=== PATIENT | male | born 1965 | race Caucasian/White ===

== ENCOUNTER 2016-11-06 06:26 | Inpatient (IN) | payer OTHER ==
[2016-11-06] VITALS (20 sets, daily range): BP systolic 91–124; BP diastolic 58–81; PULSE 50–70; RESP 13–20; Ht 185.4 cm; Wt 120.4 kg
[~2016-11-06] VITALS: Ht 185.4 cm; Wt 120.4 kg
[2016-11-06] MEDS ORDERED: SURGIFOAM POWDER 1 GM KIT ONE (06:49)
[2016-11-06] MEDS ORDERED: ROCURONIUM 50 MG INJ ONE (06:50)
[2016-11-06] MEDS ORDERED: BUPIVACAINE 0.25%/EPI (SDV) 30 ML INJ ONE (06:50)
[2016-11-06] MEDS ORDERED: BUPIVACAINE 0.25% (MPF) 30 ML INJ ONE (06:50)
[2016-11-06] MEDS ORDERED: CA CHLORIDE 10% 10 ML SYRINGE ONE (06:50)
[2016-11-06] MEDS ORDERED: LIDOCAINE 2% (SDV) 5 ML INJ ONE (06:50)
[2016-11-06] MEDS ORDERED: THROMBIN 5000 UNIT VIAL ONE (06:50)
[2016-11-06] MEDS ORDERED: PROPOFOL 20 ML ONE (06:50)
[2016-11-06] MEDS ORDERED: FENTAnyl 50 MCG/ML VIAL ONE ×2 (06:52→07:58)
--- NOTE | 2016-11-06 06:58 | HPN ---
Date/Time of Note Date/Time of Note DATE: 11/06/16 TIME: 06:58 MARGE ALVARENGA PA-C Nov 06, 2016 06:58
[2016-11-06] MEDS ORDERED: CYCLOBENZAPRINE 10 MG TAB PO PRN (07:00)
[2016-11-06] MEDS ORDERED: AL HYDROX/MG HYDROX/SIMETH 30 ML CUP PO PRN (07:00)
[2016-11-06] MEDS ORDERED: HYDROmorphONE 1 MG/ML SYG IV PRN (07:00)
[2016-11-06] MEDS ORDERED: ONDANSETRON 4 MG INJ ONE (07:00)
[2016-11-06] MEDS ORDERED: DIPHENHYDRAMINE 50 MG INJ IV PRN ×2 (07:00→09:00)
[2016-11-06] MEDS ORDERED: ONDANSETRON 4 MG INJ IV PRN ×2 (07:00→09:00)
[2016-11-06] MEDS ORDERED: NALOXONE (0.4 MG/ML) INJ IV PRN (07:00)
[2016-11-06] MEDS ORDERED: BISACODYL 10 MG SUPP PR PRN (07:00)
[2016-11-06] MEDS ORDERED: CEPASTAT LOZENGE MT PRN (07:00)
[2016-11-06] MEDS ORDERED: ZOLPIDEM 5 MG TAB PO PRN (07:00)
[2016-11-06] MEDS ORDERED: ACETAMINOPHEN 325 MG TAB PO PRN (07:00)
[2016-11-06] MEDS ORDERED: HYDROmorphONE 0.2 MG/ML PCA IV SCH (07:00)
[2016-11-06] MEDS ORDERED: morphine 10 MG INJ ONE (07:08)
[2016-11-06] MEDS ORDERED: LABETALOL HCL 20MG INJ ONE (07:41)
[2016-11-06] MEDS ORDERED: THROMBIN 5000 UNIT VIAL TOP ONE (07:48)
[2016-11-06] MEDS ORDERED: BUPIVACAINE 0.25%/EPI (SDV) 30 ML INJ INJ ONE (07:48)
[2016-11-06] MEDS ORDERED: POLYMYXIN/BACITRACIN 1L IRRIG IRR ONE (07:48)
[2016-11-06] MEDS ORDERED: LACTATED RINGER'S 1L BAG IV* SCH (08:00)
[2016-11-06] MEDS ORDERED: CEFAZOLIN 2 GM/50 ML (PMX) 50 ML IVPB ONE (08:00)
[2016-11-06] MEDS ORDERED: DEXAMETHASONE 4 MG/ML 1 ML INJ ONE (08:30)
[2016-11-06] MEDS ORDERED: POLYMYXIN/BACITRACIN 1L IRRIG ONE (08:49)
[2016-11-06] MEDS ORDERED: EPHEDrine SULFATE 50 MG/5 ML SYG IV PRN (09:00)
[2016-11-06] MEDS ORDERED: LABETALOL HCL 20MG INJ IV PRN (09:00)
[2016-11-06] MEDS ORDERED: OXYCODONE/ACETAMINOPHEN (5/325) TAB PO PRN ×2 (09:00)
[2016-11-06] MEDS ORDERED: hydrALAzine 20 MG INJ IV PRN (09:00)
[2016-11-06] MEDS ORDERED: METOCLOPRAMIDE 10 MG INJ IV PRN (09:00)
[2016-11-06] MEDS: DOCUSATE SODIUM 100 MG CAP PO SCH ×2 (09:00→20:40)
[2016-11-06] MEDS ORDERED: HYDROmorphONE (0.2 MG/ML) 10ML SYG IV PRN ×3 (09:00)
[2016-11-06] MEDS ORDERED: MEPERIDINE 25 MG INJ IV PRN (09:00)
[2016-11-06] MEDS ORDERED: FENTAnyl 50 MCG/ML VIAL IV PRN ×3 (09:00)
--- NOTE | 2016-11-06 09:17 | OPR ---
Date/Time of Note Date/Time of Note DATE: 11/06/16 TIME: 09:12 Operative Report Preoperative Diagnosis left L4-5 HNP Postoperative Diagnosis left L4-5 HNP Operation/Procedure Performed left L4-5 discectomy, IOM (75 min) Surgeon: JESÚS BREWSTER MD hospital nursing assistant: MARGE ALVARENGA PA-C Anesthesia: general Estimated Blood Loss: 50 - 100 ml's Specimens disk Complications: None JESÚS BREWSTER MD Nov 06, 2016 09:17
[2016-11-06] MEDS: D5W-0.45 NACL + KCL 20 MEQ 1,000 ML IV SCH ×2 (09:26→16:13)
--- NOTE | 2016-11-06 11:40 | OPR ---
DATE OF OPERATION: 11/06/2016 PREOPERATIVE DIAGNOSES: 1. Left L4-5 disc herniation. 2. Left hip pain. 3. Left lumbosacral radiculopathy. 4. BMI 35. (morbid obesity). POSTOPERATIVE DIAGNOSES: 1. Left L4-5 disc herniation. 2. Left hip pain. 3. Left lumbosacral radiculopathy. 4. BMI 35. (morbid obesity). OPERATION PERFORMED: 1. Left L4-5 hemilaminotomy, partial medial facetectomy, and foraminotomy. 2. Left L4-5 lumbar microdiscectomy. 3. Use of operative microscope. 4. Use of C-arm fluoroscopy with interpretation without radiologist present. 5. Intraoperative neural monitoring (1 hour 15 minutes). SURGEON: Fernando Braxton MD LEGUILLON DEBEADER: Roxana Marquez PA-C NEED FOR SEISMOGRAPH SHOOTER: assistant coach was required to retract the neurovascular elements. OPERATIVE FINDINGS AT SURGERY: Neural monitoring throughout the case revealed left L4 amplitude down 30 percent, left L5 amplitude down 40 percent. At the end of the case, nerve signal returned to normal. ESTIMATED BLOOD LOSS: 50 cc. DRAINS: None. SPECIMENS: Disc. COMPLICATIONS: None. ANESTHESIOLOGIST: Dr. Bolanos. ANESTHESIA: General. INDICATION FOR PROCEDURE: This is a 51-year-old gentleman with left lumbosacral radiculopathy in the setting of a disc herniation at L4-5. He has failed nonoperative measures. Therefore, it was recommended that he undergo the above procedure. Preoperatively, we discussed risks, benefits, alternatives. He understood and wished to proceed. PROCEDURE IN DETAIL: The patient was identified in the holding area, given Ancef antibiotics, taken to the operating room, where he was successfully placed under general anesthesia. Neural monitor leads were placed. Sequential compressive devices were applied. Neural monitoring was utilized during the procedure for 1 hour and 15 minutes to include SSEP, MEP, and EMG. This was performed by [employer]. Start time was 7:45 a.m. Closure time was 9 a.m. The patient was placed in the operating room table in prone position on Matthew frame. All bony prominences were well padded. The back was then prepped draped usual sterile fashion. Spine needles were placed and a lateral localizing film was obtained to confirm the correct levels. Once this was confirmed, I injected the skin and subcu tissue with Marcaine and epinephrine. An incision was then made over the L4-5 level. Incision was taken down to the dorsal fascia, which was incised with Bovie cautery. I then subperiosteally dissected left L4 lamina. A Kerrison was placed on what was felt to be the L4 lamina and a repeat lateral film obtained to confirm the correct levels. Once this was confirmed, microscope was brought in. The patient was morbidly obese and extended instruments had to be utilized which added complexity to the procedure. I then performed a left-sided hemilaminotomy. His bone was quite soft. I was concerned for osteoporosis. This will be need to be checked during his postoperative time. Once the laminotomy was performed, ligamentum flavum was sharply dissected. Partial medial facetectomy was performed. I identified the nerve root, which I was able to have my assistant teaching professor retracted medially. I found extrusion. Annulotomy was made and discectomy was performed. Once the discectomy was completed, all nerve signals returned to normal. I irrigated the disc space in the wound. Hemostasis was achieved with bipolar cautery and Surgifoam. Valsalva maneuver was performed. There was no leak of CSF. The wound was dry and I therefore elected not to place a drain. I passed an epidural catheter through which I injected 100 mcg of fentanyl. Platelet poor plasma was then injected over the over the dura. The retractor was then removed and the deep fascia was closed with number 1 Vicryl stitch. Microscope was taken off the field. 2-0 Vicryl subcutaneous closure was performed followed by 4-0 Monocryl closure. Dermabond was then applied. The patient was then awakened from anesthesia, and taken recovery in stable condition. Lap, sponge, and instrument counts correct x2. There were no apparent complications during the procedure. The patient will be admitted to [facility] for routine postoperative care to include pain control, neurovascular checks, antibiotics and physical therapy. Dictated By: Fernando Braxton MD /alison/yael /Document#: [id number] [place]
--- NOTE | 2016-11-06 13:03 | RADRPT ---
PROCEDURE: XR lumbar spine CLINICAL INDICATION: L4-L5 MICRODISCECTOMY TECHNIQUE: Single cross-table lateral view lumbar spine obtained COMPARISON: None available FINDINGS: [place] present in the posterior soft tissues at the upper L4, L5 levels. Anterior osteophytes are visualized L3-4 through L5-S1 with mild moderate disk space narrowing at L4-5. IMPRESSION: Posterior needle localization at L4, L5. Lower lumbar spondylosis/degenerative enthesopathy. RPTAT: VV .Eliu Dove MD, Date Time Electronically viewed and signed by .Eliu Dove MD, on 11/06/2016 13:03 .O/
--- NOTE | 2016-11-06 13:04 | RADRPT ---
PROCEDURE: XR lumbar spine CLINICAL INDICATION: L4-L5 MICRODISCECTOMY TECHNIQUE: Single cross-table lateral view lumbar spine obtained COMPARISON: 11/06/2016 FINDINGS: There are now posterior instrumentation at the L4-5 level. Anterior osteophytes are again visualized at L3-4 through L5-S1 with mild moderate disk space narrowing at L4-5. IMPRESSION: Posterior instrumentation at L4-5. RPTAT: VV .Eliu Dove MD, Date Time Electronically viewed and signed by .Eliu Dove MD, on 11/06/2016 13:04 .O/
[2016-11-06] MEDS: CEFAZOLIN 1 GM/50 ML (PMX) 50 ML IVPB SCH ×2 (15:49→23:34)
[2016-11-06] MEDS: TAMSULOSIN (SR) 0.4 MG CAP PO SCH ×2 (16:13→20:40)
[2016-11-06] MEDS ORDERED: HYDROCODONE/APAP (5/325) TAB PO PRN (23:00)
[2016-11-06] MEDS: HYDROCODONE/APAP (5/325) TAB PO PRN (23:36)
[2016-11-07 01:51] VITALS: BP 118/68; PULSE 68; RESP 18
[2016-11-07] MEDS: D5W-0.45 NACL + KCL 20 MEQ 1,000 ML IV SCH ×2 (02:39→11:59)
[2016-11-07] MEDS: HYDROCODONE/APAP (5/325) TAB PO PRN ×3 (05:02→13:13)
[2016-11-07 05:38] LABS: BASOPHILS % 0.1 % (0.0-2.0); EOSINOPHILS % 0.1 % (0.0-7.0); HEMATOCRIT 38.3 % (42.0-52.0); HEMOGLOBIN 12.9 g/dl (14.0-18.0); LYMPHOCYTES # 1.8 10^3/ul (0.8-2.9); LYMPHOCYTES % 11.7 % (15.0-51.0); MEAN CORPUSCULAR HEMOGLOBIN 31.5 pg (29.0-33.0); MEAN CORPUSCULAR HGB CONC 33.7 g/dl (32.0-37.0); MEAN CORPUSCULAR VOLUME 93.4 fl (82.0-101.0); MEAN PLATELET VOLUME 9.9 fl (7.4-10.4); MONOCYTES % 6.8 % (0.0-11.0); NEUTROPHIL # 12.2 10^3/ul (1.6-7.5); NEUTROPHILS % 80.8 % (39.0-77.0); PLATELET COUNT 186 10^3/UL (140-415); RED CELL DISTRIBUTION WIDTH 13.8 % (11.5-14.5); WHITE BLOOD COUNT 15.1 10^3/ul (4.8-10.8)
[2016-11-07 05:50] LABS: CALCIUM 8.8 mg/dl (8.4-10.2); CREATININE 0.58 mg/dl (0.61-1.24); MAGNESIUM 1.9 mg/dl (1.7-2.5); POTASSIUM 4.3 mmol/L (3.5-5.1)
--- NOTE | 2016-11-07 05:52 | CONS ---
DATE OF ADMISSION: 11/06/2016 DATE OF CONSULTATION: 11/06/2016 participate in the medical management of this patient. The patient is being seen today because of a cough and dizziness. The patient is now postop a lumbar spine surgery. The patient was having low back pain with left sciatic nerve syndrome. The patient underwent surgery today by Dr. Braxton, which included a left L4-5 hemilaminectomy, a partial medial facetectomy and foraminotomy. The patient was diagnosed with a left L4-5 disc herniation preoperatively. The patient at this time is awake and alert. He does have a cough. He said that he had an upper respiratory infection that started about 4 days ago when he was visiting [facility]. The patient has not had any fever or chills. He denies shortness of breath or chest pain. PAST MEDICAL HISTORY: Essentially unremarkable as far as no history of hypertension, diabetes mellitus, or heart disease. He does have a history of migraine headaches, methamphetamine abuse that is in remission. He is a smoker, smokes a pack of cigarettes a day. Right bundle branch block pattern on EKG. PAST SURGICAL HISTORY: Arthroscopic knee surgery on the right in 2001. ALLERGIES: HE HAS KNOWN NO KNOWN HISTORY OF ANESTHETIC COMPLICATIONS. NO KNOWN DRUG ALLERGIES. SOCIAL HISTORY: He does smoke. As mentioned above. He does drink alcohol, 2-4 drinks a week. He is not currently using any drugs. Occupation is a [____]. The patient lives with his family. FAMILY HISTORY: Family history is remarkable for hypertension, hyperlipidemia, lung cancer, and melanoma as above. PHYSICAL EXAMINATION: GENERAL APPEARANCE: At this time reveals a well-developed man in no apparent distress. VITAL SIGNS: Pulse of 57, blood pressure 109/59, O2 sat of 98 percent on 3 L nasal cannula. HEENT: Head normocephalic. Eyes, extraocular muscles intact. Nose and mouth are normal. NECK: Supple. No neck vein distention. LUNGS: Clear to auscultation. HEART: Regular rhythm. No murmurs, gallops, or rubs. ABDOMEN: Soft, nontender. EXTREMITIES: No peripheral edema. IMPRESSION: The patient is now postop a lumbar spine surgery. He does have a nonproductive cough, which he had preoperatively. He said that he developed an upper respiratory infection about 4 days ago while visiting [facility]. He has no other ongoing medical problems. I will follow the patient and manage his medical problems including migraine headaches, cough, and history of right bundle branch block pattern on EKG. PLAN: 1. Continue postop lumbar spine surgery protocol. 2. Check labs in the morning. 3. I will follow the patient along with you. Dictated By: Kristian Liriano MD /alison/matt /Document#: [id number]
[2016-11-07] MEDS ORDERED: PANTOPRAZOLE 40 MG INJ IV SCH (06:00)
[2016-11-07] MEDS: CEFAZOLIN 1 GM/50 ML (PMX) 50 ML IVPB SCH (07:37)
[2016-11-07 08:01] VITALS: BP 115/64; RESP 17
[2016-11-07] MEDS: DOCUSATE SODIUM 100 MG CAP PO SCH (08:55)
[2016-11-07] MEDS ORDERED: HYDROCODONE/APAP (5/325) TAB PO PRN ×2 (10:00)
--- NOTE | 2016-11-07 12:44 | DS ---
Date/Time of Note Date/Time of Note DATE: 11/07/16 TIME: 12:43 Discharge Summary Admission/Discharge Info Admit Date/Time Nov 06, 2016 at 06:26 Discharge Date/Time nov 07 Discharge Diagnosis lumbar hnp Patient Condition: Good Hospital Course the patient was admitted to the [facility] after undergoing a left L4-5 discectomy on November 06. His post-op course was uncomplicated. By post-op Day 1 he was deemed stable for d/c with follow-up arranged with the undersigned. Primary Care Provider Fernando Braxton MD Pending Labs Laboratory Tests Test 11/07/16 04:49 White Blood Count 15.110^3/ul (4.8-10.8) Red Blood Count 4.1010^6/ul (4.70-6.10) Hemoglobin 12.9g/dl (14.0-18.0) Hematocrit 38.3% (42.0-52.0) Mean Corpuscular Volume 93.4fl (82.0-101.0) Mean Corpuscular Hemoglobin 31.5pg (29.0-33.0) Mean Corpuscular Hemoglobin Concent 33.7g/dl (32.0-37.0) Red Cell Distribution Width 13.8% (11.5-14.5) Platelet Count 56248^3/UL (140-415) Mean Platelet Volume 9.9fl (7.4-10.4) Neutrophils % 80.8% (39.0-77.0) Lymphocytes % 11.7% (15.0-51.0) Monocytes % 6.8% (0.0-11.0) Eosinophils % 0.1% (0.0-7.0) Basophils % 0.1% (0.0-2.0) Nucleated Red Blood Cells % 0.0/100WBC (0.0-0.0) Neutrophils # 12.210^3/ul (1.6-7.5) Lymphocytes # 1.810^3/ul (0.8-2.9) Monocytes # 1.010^3/ul (0.3-0.9) Eosinophils # 0.010^3/ul (0.0-0.5) Basophils # 0.010^3/ul (0.0-0.1) Nucleated Red Blood Cells # 0.010^3/ul (0.0-0.0) Sodium Level 140mmol/L (135-144) Potassium Level 4.3mmol/L (3.5-5.1) Chloride Level 100mmol/L (97-110) Carbon Dioxide Level 26mmol/L (21-31) Anion Gap 18 (8-16) Blood Urea Nitrogen 13mg/dl (7-20) Creatinine 0.58mg/dl (0.61-1.24) Glucose Level 111mg/dl (70-220) Calcium Level 8.8mg/dl (8.4-10.2) Magnesium Level 1.9mg/dl (1.7-2.5) FERNANDO BRAXTON MD Nov 07, 2016 12:44
--- NOTE | 2016-11-07 13:36 | CONS ---
Date/Time of Note Date/Time of Note DATE: 11/07/16 TIME: 13:33 Assessment/Plan Assessment/Plan Chief Complaint/Hosp Course 1. The patient is now one day postop a lumbar spine surgery. 2. He does have an elevated white blood count; however, he has no other signs or symptoms of infection. He can be discharged home today I instructed him to call if he should develop fever or any focal symptoms that would indicate an infection. Problems: Consultation Date/Type/Reason Admit Date/Time Nov 06, 2016 at 06:26 Initial Consult Date 24 HR Interval Summary Free Text/Dictation The patient is now one day postop a lumbar spine surgery. He feels well. He has been up walking. He denies cough, dysuria, shortness of breath. Constitutional: improved, no complaints Exam/Review of Systems Vital Signs Vitals Vital Signs Date Time Temp Pulse Resp B/P Pulse Ox O2 Delivery O2 Flow Rate FiO2 11/07/16 08:01 98.2 67 17 115/64 100 11/07/16 01:51 Room Air 11/06/16 13:00 3.0 Intake and Output 11/06/16 11/06/16 11/07/16 15:00 23:00 07:00 Intake Total 800 ml 1910 ml 2300 ml Output Total 20 ml 400 ml 1000 ml Balance 780 ml 1510 ml 1300 ml Exam Constitutional: alert, oriented, well developed Psych: no complaints Respiratory: clear to auscultation, normal air movement Cardiovascular: regular rate and rhythm Gastrointestinal: soft Musculoskeletal: nl extremities to inspection Results Result Diagram: 11/07/16 0449 11/07/16 0449 Results 24 hrs Laboratory Tests Test 11/07/16 04:49 White Blood Count 15.1 H Red Blood Count 4.10 L Hemoglobin 12.9 L Hematocrit 38.3 L Mean Corpuscular Volume 93.4 Mean Corpuscular Hemoglobin 31.5 Mean Corpuscular Hemoglobin Concent 33.7 Red Cell Distribution Width 13.8 Platelet Count 186 Mean Platelet Volume 9.9 Neutrophils % 80.8 H Lymphocytes % 11.7 L Monocytes % 6.8 Eosinophils % 0.1 Basophils % 0.1 Nucleated Red Blood Cells % 0.0 Neutrophils # 12.2 H Lymphocytes # 1.8 Monocytes # 1.0 H Eosinophils # 0.0 Basophils # 0.0 Nucleated Red Blood Cells # 0.0 Sodium Level 140 Potassium Level 4.3 Chloride Level 100 Carbon Dioxide Level 26 Anion Gap 18 H Blood Urea Nitrogen 13 Creatinine 0.58 L Glucose Level 111 Calcium Level 8.8 Magnesium Level 1.9 Medications Medications Current Medications Potassium Chloride/Dextrose/ Sod Cl (D5-1/2ns + KCl 20 Meq) 1,000 ml @ 100 mls/ hr Q10H IV Last administered on 11/07/16 02:39; Admin Dose 100 MLS/HR; Start at 06:58 Hydromorphone HCl (Dilaudid) 0.2 mg Q1H PRN IV BREAKTHROUGH PAIN Last administered on 11/07/16 02:36; Admin Dose 0.2 MG; Start 11/06/16 at 07:00 Ondansetron HCl (Zofran Inj) 4 mg Q6H PRN IV NAUSEA AND/OR VOMITING; Start 11/06 at 07:00 Bisacodyl (Dulcolax Supp) 10 mg DAILY PRN LA CONSTIPATION; Start 11/06/16 at 07: 00 Docusate Sodium (Colace) 100 mg BID PO Last administered on 11/07/16 08:55; Admin Dose 100 MG; Start 11/06/16 at 09:00 Pantoprazole (Protonix Iv) 40 mg DAILY@06 IV Last administered on 11/07/16 05: 03; Admin Dose 40 MG; Start 11/07/16 at 06:00 Al Hydrox/Mg Hydrox/Simethicone (Mag-Al Plus) 15 ml Q6H PRN PO CONSTIPATION/ DYSPEPSIA; Start 11/06/16 at 07:00 Acetaminophen (Tylenol Tab) 650 mg Q4H PRN PO PANCHAL OR TEMP GREATER THAN 101.3F; Start 11/06/16 at 07:00 Cyclobenzaprine HCl (Flexeril) 10 mg TID PRN PO MUSCLE SPASMS Last administered on 11/07/16 07:37; Admin Dose 10 MG; Start 11/06/16 at 07:00 Phenol (Cepastat Lozenge) 1 lozenge PRN PRN MT SORE THROAT; Start 11/06/16 at 07 :00 Diphenhydramine HCl (Benadryl) 25 mg Q6H PRN IV ITCHING; Start 11/06/16 at 07:00 Tamsulosin HCl (Flomax) 0.4 mg QHS PO Last administered on 11/06/16 20:40; Admin Dose 0.4 MG; Start 11/06/16 at 16:30 Acetaminophen/ Hydrocodone Bitart ([place] (5/325)) 1 tab Q4H PRN PO PAIN LEVEL 1 -5; Start 11/06/16 at 23:00 Acetaminophen/ Hydrocodone Bitart ([place] (5/325)) 2 tab Q4H PRN PO PAIN LEVEL 6 -10 Last administered on 11/07/16 13:13; Admin Dose 2 TAB; Start 11/06/16 at 23: 00 CYNTHIA TAMEZ MD Nov 07, 2016 13:36
== END 2016-11-07 13:34 | disposition home or self-care (01) | DRG 520 ==
LOC: REC 06:26 → MS1 10:02
PROVIDERS: ADMIT Specialist; ATTEND Specialist
PROC: 01NB0ZZ Release Lumbar Nerve, Open Approach (ICD-10-PCS; 2016-11-06)
PROC: 4A11X4G Monitoring of Peripheral Nervous Electrical Activity, Intraoperative, External Approach (ICD-10-PCS; 2016-11-06)
PROC: 0SB20ZZ Excision of Lumbar Vertebral Disc, Open Approach (ICD-10-PCS; principal; 2016-11-06 09:30)
DX: M51.26 Other intervertebral disc displacement, lumbar region (principal); E66.01 Morbid (severe) obesity due to excess calories; I10 Essential (primary) hypertension; M54.17 Radiculopathy, lumbosacral region; Z68.35 Body mass index [BMI] 35.0-35.9, adult; F17.210 Nicotine dependence, cigarettes, uncomplicated
CPT/HCPCS: 72020; 80048; 83735; 85025; 86999; 97116; 97163; 97530; C9113; J0690; J1100; J1170; J2270; J2405; J3010; J3480

== ENCOUNTER 2018-07-28 09:39 | Inpatient (IN) | payer OTHER ==
[2018-07-25 17:18] VITALS: BMI 39.3
[2018-07-28] VITALS (22 sets, daily range): BP systolic 82–136; BP diastolic 42–136; PULSE 51–81; RESP 13–18; Ht 185.4 cm; Wt 129.9 kg
[~2018-07-28] VITALS: Ht 185.4 cm; Wt 129.9 kg
[~2018-07-28 09:39] MED LIST: DEXAMETHASONE 4 MG/ML 5 ML INJ ONE; FENTAnyl 50 MCG/ML VIAL ONE; GLYCOPYRROLATE 0.4 MG INJ ONE; LIDOCAINE 2% (SDV) 5 ML INJ ONE; MIDAZOLAM 1 MG/ML 2 ML INJ ONE; NEOSTIGMINE 3 MG/3 ML SYRINGE ONE; ONDANSETRON 4 MG INJ ONE; PROPOFOL 20 ML ONE; ROCURONIUM 50 MG INJ ONE; SUCCINYLCHOLINE CHLORIDE 100 MG/5 ML SYG IV ONE
[2018-07-28] MEDS ORDERED: THROMBIN (BOVINE) 5,000 UNIT VIAL TP ONE (09:41)
[2018-07-28] MEDS ORDERED: SURGIFOAM POWDER 1 GM KIT ONE (09:41)
[2018-07-28] MEDS ORDERED: POLYMYXIN/BACITRACIN 1L IRRIG ONE (09:41)
[2018-07-28] MEDS ORDERED: CA CHLORIDE 10% 10 ML SYRINGE ONE (09:42)
[2018-07-28] MEDS ORDERED: BUPIVACAINE 0.25%/EPI (SDV) 30 ML INJ ONE (09:42)
[2018-07-28] MEDS ORDERED: HEPARIN 1000 UNITS/ML 10 ML INJ ONE (09:42)
[2018-07-28] MEDS ORDERED: GELATIN SIZE 100 SPONGE ONE (09:42)
[2018-07-28] MEDS ORDERED: FENTAnyl 50 MCG/ML VIAL ONE ×2 (10:50→13:37)
[2018-07-28] MEDS ORDERED: MIDAZOLAM 1 MG/ML 2 ML INJ ONE (10:51)
[2018-07-28] MEDS ORDERED: PROPOFOL 20 ML ONE (10:51)
[2018-07-28] MEDS ORDERED: LIDOCAINE 2% (SDV) 5 ML INJ ONE (10:51)
[2018-07-28] MEDS ORDERED: NEOSTIGMINE 3 MG/3 ML SYRINGE ONE (10:52)
[2018-07-28] MEDS ORDERED: ROCURONIUM 50 MG INJ ONE (10:52)
[2018-07-28] MEDS ORDERED: GLYCOPYRROLATE 0.4 MG INJ ONE (10:52)
[2018-07-28] MEDS ORDERED: SUCCINYLCHOLINE CHLORIDE 100 MG/5 ML SYG IV ONE (10:52)
[2018-07-28] MEDS ORDERED: ONDANSETRON 4 MG INJ ONE (10:52)
[2018-07-28] MEDS ORDERED: METOCLOPRAMIDE 10 MG INJ ONE (10:53)
[2018-07-28] MEDS ORDERED: CEFAZOLIN 1 GM INJ ONE (11:06)
--- NOTE | 2018-07-28 11:49 | PREAC ---
Date/Time of Note Date/Time of Note DATE: 07/28/18 TIME: 11:44 Anesthesia Eval and Record Evaluation Time Pre-Procedure Interview DATE: 07/28/18 TIME: 11:44 Age 53 Sex male NPO: 8 hrs Preoperative diagnosis back pain Planned procedure REVISION LUMBAR MICRODISCECTOMY Past Medical History Past Medical History: Includes Cardio: HTN Pulm: Smoking Hx (smoked today at 0730) Hepatic: Alcohol abuse GI: Morbid obesity Recreational drugs: Other (Meth hx 6 years ago) Surgery & Anesthesia Issues No known issue Meds Anticoagulation: No Beta Tremaine within 24 hr: No Reason Beta Tremaine not given: Pt. not on B-Tremaine No Active Prescriptions or Reported Meds Meds reviewed: Yes Allergies Coded Allergies: No Known Drug Allergies (Verified Allergy, Unknown, 07/28/18) Allergies Reviewed: Yes Labs/Studies Labs Reviewed: Reviewed by anesthesiologist Result Diagram: 07/28/18 1050 Laboratory Tests 07/28/18 10:50 test: N/A Studies: ECG (SR / RBBB), CXR Pre-procedure Exam Last vitals Vital Signs Date Temp Pulse Resp B/P (MAP) Pulse Ox O2 O2 Flow FiO2 Time Delivery Rate 07/28/18 97.7 78 16 121/75 96 Room Air 11:02 (90) Airway: Adequate mouth opening, Adequate thyromental dist Mallampati: Mallampati I Teeth: Normal Lung: Normal Heart: Normal ASA Physical Status ASA physical status: 3 Emergency: None Planned Anesthetic General/MAC: ETT Pre-operative Attestations Prior to commencing anesthesia and surgery, the patient was re-evaluated, there was verification of: *The patient's identity *The results of appropriate recent lab work and preoperative vital signs *The above evaluation not changing prior to induction *Anesthetic plan, risk benefits, alternative and complications discussed with patient/family; questions answered; patient/family understands, accepts and wishes to proceed. MABEL BRYANT Jul 28, 2018 11:49
--- NOTE | 2018-07-28 12:17 | HPN ---
Date/Time of Note Date/Time of Note DATE: 07/28/18 TIME: 12:17 Interval H&P Admission Note Pt. seen H&P reviewed: No system changes MARGE ALVARENGA PA-C Jul 28, 2018 12:17
[2018-07-28] MEDS ORDERED: NALOXONE (0.4 MG/ML) INJ IV PRN (12:30)
[2018-07-28] MEDS ORDERED: HYDROCODONE/APAP (5/325) TAB PO PRN (12:30)
[2018-07-28] MEDS ORDERED: ONDANSETRON 4 MG INJ IV PRN ×2 (12:30→14:00)
[2018-07-28] MEDS ORDERED: DIPHENHYDRAMINE 50 MG INJ IV PRN ×2 (12:30→14:00)
[2018-07-28] MEDS ORDERED: BISACODYL 10 MG SUPP PR PRN (12:30)
[2018-07-28] MEDS ORDERED: CEPASTAT LOZENGE MT PRN (12:30)
[2018-07-28] MEDS ORDERED: ACETAMINOPHEN 325 MG TAB PO PRN (12:30)
[2018-07-28] MEDS ORDERED: HYDROmorphONE 0.5 MG/0.5 ML SYG IV PRN (12:30)
[2018-07-28] MEDS ORDERED: DIPHENHYDRAMINE 25 MG CAP PO PRN (12:30)
[2018-07-28] MEDS ORDERED: CYCLOBENZAPRINE 10 MG TAB PO PRN (12:30)
[2018-07-28] MEDS: CEFAZOLIN 1 GM/50 ML (PMX) 50 ML IVPB SCH ×2 (12:30→20:23)
[2018-07-28] MEDS ORDERED: METOPROLOL 5 MG INJ ONE (12:57)
[2018-07-28] MEDS ORDERED: LEVALBUTEROL (NEB) 1.25 MG/0.5 ML AMP HHN PRN (14:00)
[2018-07-28] MEDS ORDERED: HYDROmorphONE 1 MG/5 ML IV SYRINGE IV PRN ×2 (14:00)
[2018-07-28] MEDS ORDERED: MEPERIDINE 25 MG INJ IV PRN (14:00)
[2018-07-28] MEDS ORDERED: MIDAZOLAM 1 MG/ML 2 ML INJ IV PRN (14:00)
[2018-07-28] MEDS ORDERED: LABETALOL HCL 20MG INJ IV PRN (14:00)
[2018-07-28] MEDS ORDERED: HALOPERIDOL 5 MG INJ IV PRN (14:00)
[2018-07-28] MEDS ORDERED: LORAZEPAM 2 MG INJ IV PRN (14:00)
[2018-07-28] MEDS ORDERED: IPRATROPIUM (NEB) 0.5 MG/2.5 ML AMP HHN PRN (14:00)
[2018-07-28] MEDS ORDERED: hydrALAzine 20 MG INJ IV PRN (14:00)
[2018-07-28] MEDS ORDERED: FENTAnyl 50 MCG/ML VIAL IV PRN ×2 (14:00)
--- NOTE | 2018-07-28 14:57 | SIPON ---
Date/Time of Note Date/Time of Note DATE: 07/28/18 TIME: 14:56 Operative Report Preoperative Diagnosis Left L4-5 recurrent disc herniation Postoperative Diagnosis Left L4-5 recurrent disc herniation Operation/Procedure Performed Left L4-5 revision lumbar microdiscectomy Surgeon see signature line customer relations assistant Roxana Marquez Anesthesia: general Estimated blood loss: 10 - 50 ml's Transfusion Required none Specimen L4-5 disc Grafts/Implants none Complications none JESÚS BREWSTER MD Jul 28, 2018 14:57
[2018-07-28] MEDS: HYDROmorphONE 1 MG/5 ML IV SYRINGE IV PRN ×2 (15:26→15:35)
--- NOTE | 2018-07-28 16:57 | OPR ---
DATE OF OPERATION: 07/28/2018 PREOPERATIVE DIAGNOSES: 1. Recurrent left L4 to L5 lumbar disk herniation with radiculopathy. 2. Obesity with BMI of 37.8. POSTOPERATIVE DIAGNOSES: 1. Recurrent left L4 to L5 lumbar disk herniation with radiculopathy. 2. Obesity with BMI of 37.8. OPERATIONS PERFORMED: 1. Revision left L4 to L5 lumbar microdiskectomy. 2. Use of operative microscope. 3. Lateral localizing film x2. 4. Intraoperative neuromonitoring. PRIMARY SURGEON: Fernando Braxton MD GROUP ROOMS COORDINATOR: JUDY Osei NEED FOR NON ACOUSTIC OPERATOR: During this spinal surgical procedure, my pharmacist assistant was used to retract and protect the spinal nerves and dural sac. My pharmacist assistant also employed the suction catheters to ev acuate blood from the surgical field to improve visualization of the neural structures. The assistan t was medically necessary to facilitate the completion of the surgery in a safe and expeditious [facility]. [facility] regulations, as well as hospital bylaws, preclude the use of non-licensed [facility] care personnel, such as operating room technicians, to perform these functions. FINDINGS: Neuromonitoring at the start of the case revealed left L4 amplitude down 30%, left L5 down 40%. At the end of the case, nerve signals returned to normal. The patient had new bony overgrowth over the laminotomy site. The patient extruded fragment centrally. ESTIMATED BLOOD LOSS: Less than 30 mL. DRAINS: None. SPECIMENS: L4 to L5 disk. COMPLICATIONS OF PROCEDURES: None. ANESTHESIOLOGIST: Dr. Salas. TYPE OF ANESTHESIA: General. INDICATIONS FOR PROCEDURE: This is a 53-year-old gentleman who previously undergone L4 to L5 microdi skectomy. He did well initially, but then had recurrent pain. MRI study showed large extruded fragm ent centrally which was recurrent in nature. Given this, he failed nonoperative measures; therefore, I recommend that he undergo the above procedure. Preoperatively, we discussed risks, benefits, alte rnatives. He understood and wished to proceed. DESCRIPTION OF PROCEDURE IN DETAIL: The patient was identified in the preoperative holding area, gi en Ancef antibiotic, taken to the operating room, where he was successfully placed under general anes thesia. Neuromonitoring leads were placed. Sequential compressive devices were applied. Remote int raoperative neuromonitoring was performed by Dr. Lerma from 11:04 until 14:50 to include SSEP, ME P and EMG performed by [employer]. The patient was placed on the operating table in prone posi tion over a Matthew frame. All bony prominences were well padded. The back was then prepped and drap ed in the usual sterile fashion. I injected the incision site with Marcaine and epinephrine and conf irmed the incision site using a lateral x-ray. I then made a skin incision using the patient's previ ous scar. I incised down to dorsal fascia. I then subperiosteally dissected the L4 and L5 lamina. I identified the hemilaminotomy defect to place a curet and took lateral films to confirm the correct levels. Once this was confirmed, microscope was brought in. I used curettes to clean off the hemil aminotomy site. There was new bony overgrowth covering nearly the entire hemilaminotomy site. There is alteration of the field in addition to the patient's obesity with BMI of nearly 38.0 complicated the surgery and added at least 30 minutes to the procedure. I carefully dissected the dura off of th e lamina and completed the laminotomy with partial medial facetectomy using curettes. I then identif ied the L5 nerve root and I decompressed this around the pedicle to clearly identify the pedicle. I was able to retract the neural elements slightly medially. There was quite a bit of scar keeping me from moving this over. I teased this off as much as I could. I made an annulotomy into the disk spa ce where I performed a microdiskectomy. I then was able to peel the dura more medially and identifie d the hole in the annulus centrally located from the recurrent herniation. Once I was able to tease this over, I was able to remove a large extruded fragment that was centrally located. Once this was done, all nerve signals returned to normal. I then irrigated the disk space. Hemostasis was achieve d. A Valsalva was performed and there was no leak of CSF. The wound was irrigated. The microscope was taken off the field. The wound was closed in layers, closing deep fascia with #1 Vicryl stitch. I closed subcutaneous tissue with 2-0 Vicryl stitch. A 4-0 Monocryl closure was then performed. De rmabond and sterile dressing was then applied. The patient is awakened from anesthesia and taken to the recovery room in stable condition. Lap, sponge and instrument counts were correct x2. There wer e no apparent complications during the procedure. The patient will be admitted to the [facility] for routine postoperative care to include pain co ntrol, neurovascular checks, antibiotics and physical therapy. Dictated By: FERNANDO BRAXTON MD BB/NTS Conf#: [id number] DID#: [id number] CC: GENESIS QUESADA MD;*EndCC*
[2018-07-28] MEDS: D5W-0.45 NACL + KCL 20 MEQ 1,000 ML IV SCH ×2 (18:50→22:14)
[2018-07-28] MEDS: HYDROCODONE/APAP (5/325) TAB PO PRN (18:50)
--- NOTE | 2018-07-28 19:50 | CONS ---
DATE OF ADMISSION: 07/28/2018 DATE OF CONSULTATION: 07/28/2018 TYPE OF CONSULTATION: Postoperative medical. Dear Dr. Braxton: Thank you very much for allowing me to evaluate the above patient, a 53-year-old male who just underw ent lumbar back surgery. HISTORICAL EVENTS: As you well know, this patient has had low back pain and related left leg radicul ar pain in excess of 20 years. In 11/2016, he underwent an L4-L5 microdiskectomy with resolution of his leg pain. It was in 07/2017, after a long car drive, he had recurrence of back pain. He underwe nt physical therapy with improvement. He again had a recurrence of low back pain in 12/[address] terrence a left leg pain and because of conservative therapy that did not allow improvement, elected to pr oceed with surgery. On the orthopedic floor, he is reasonably comfortable without cough, wheezing, s hortness of breath, chest, or abdominal pain. PAST MEDICAL HISTORY: 1. Questionable history of hypertension. 2. History of migraine headaches. MEDICATIONS PRIOR TO ADMISSION: 1. Aleve. 2. Fish oil. 3. Testosterone. PAST SURGICAL HISTORY: History of left knee surgery. ALLERGIES: NONE. SOCIAL HISTORY: He is a . He is . He is a moderate drinker. He has been sober for 4 y ears. PHYSICAL EXAMINATION: GENERAL: [place] male. No acute distress. VITAL SIGNS: BP 122/80, pulse 70, and respirations were 18. He was afebrile. EYES: Extraocular muscles were full. NOSE, MOUTH, AND THROAT: Normal. NECK: Supple. There was no jugular venous distention, thyroid enlargement, or adenopathy. LUNGS: Clear. HEART: Rhythm regular. No murmur. No third or fourth sound. ABDOMEN: Nontender. Liver and spleen were not palpable. No mass or tenderness were noted. EXTREMITIES: No edema. Calves nontender. Pulses 2+. NEUROLOGIC: No lateralizing motor weakness. IMPRESSION: 1. Stable postoperative lumbar back surgery. 2. History of hypertension. We will review this with the patient. We will observe BP throughout. 3. We will follow daily for signs and symptoms of thromboembolic disease. Thank you so much. Dictated By: GENESIS OHARA/NTS Conf#: [id number] DID#: [id number] CC: CYNTHIA TAMEZ MD; GENESIS QUESADA MD; JESÚS BRAXTON MD;*[facility]*
[2018-07-28] MEDS: NICOTINE (21 MG/24 HR) PATCH TRANSDERM SCH (20:23)
--- NOTE | 2018-07-28 20:23 | CONS ---
DATE OF ADMISSION: 07/28/2018 DATE OF CONSULTATION: 07/28/2018 Thank you, Dr. Braxton, for having us participate in medical management of this patient. REASON FOR CONSULTATION: To manage the patient's hypertension, migraine headaches, and smoking. HISTORY OF PRESENT ILLNESS: This 53-year-old man is now postop surgery by Dr. Braxton. The patien t is awake and alert. His pain is under control. 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 He had pain in his low back radiating down his left leg. The patient had a revision of the left L4-L5 lumbar microdiskectomy, which he had done about a year and a half ago. The pain recurred and he underwent today's surgery to relieve the pain. PAST MEDICAL HISTORY: Hypertension; methamphetamine abuse, in remission; migraine headaches; some mo derate daily smoker; obesity; right bundle branch block pattern; snoring. PAST SURGICAL HISTORY: Anterior cruciate ligament repair, microdiskectomy of the lumbar spine in Nov. He denies taking any medication daily. SOCIAL HISTORY: He is . OCCUPATIONAL HISTORY: [employer] [employer]. He does drink alcohol on a regular basis. He does not use drugs. ALLERGIES: NO KNOWN DRUG ALLERGIES. PHYSICAL EXAMINATION: GENERAL: At this time reveals a well-developed man in no apparent distress. VITAL SIGNS: Temperature 98.9, pulse 59, respirations 16, blood pressure 109/55, O2 saturation 94% o n room air. HEENT: Head normocephalic. Eyes: Extraocular muscles intact. NOSE AND MOUTH: Normal. NECK: Supple. No neck vein distention. LUNGS: Clear to auscultation. HEART: Regular rhythm. No murmurs, gallops, or rubs. ABDOMEN: Soft, nontender, no masses or organomegaly. EXTREMITIES: No peripheral edema. IMPRESSION: This patient is now postop L4-L5 microdiskectomy for a recurrent disk herniation. He is awake and alert, and his pain is under control. I will manage the patient's migraine headaches, abner ly smoking, and right bundle branch block. PLAN: 1. Start the patient on a nicotine patch. 2. Postop lumbar spine surgery protocol. 3. Check labs in the morning. 4. I will follow the patient along with you. Dictated By: CYNTHIA TAMEZ MD ND/NTS Conf#: [id number] DID#: [id number] CC: JESÚS BRAXTON MD;*[facility]*
[2018-07-28] MEDS: DOCUSATE SODIUM 100 MG CAP PO SCH (20:34)
[2018-07-28] MEDS ORDERED: TAMSULOSIN (SR) 0.4 MG CAP PO ONE (23:30)
[2018-07-29 00:17] VITALS: BP 133/72; PULSE 87; RESP 18
[2018-07-29] MEDS: CEFAZOLIN 1 GM/50 ML (PMX) 50 ML IVPB SCH (04:37)
[2018-07-29] MEDS: D5W-0.45 NACL + KCL 20 MEQ 1,000 ML IV SCH (05:35)
[2018-07-29] MEDS: AL HYDROX/MG HYDROX/SIMETH 30 ML CUP PO PRN ×2 (05:35→17:01)
--- NOTE | 2018-07-29 08:31 | CONS ---
Assessment/Plan Assessment/Plan Assessment/Plan (Daily) 1. Doing well post op lumbar back surgery 2. Urinary retention which has been problematic in the past post op, will cont flomax and try to remove catheter later u/a and culture obtained. 3. Labs rev Consultation Date/Type/Reason Admit Date/Time Jul 28, 2018 at 09:39 Initial Consult Date Date/Time of Note DATE: 07/29/18 TIME: 08:27 Detailed Summary Respiratory: No cough, No shortness of breath Cardiovascular: No chest pain Gastrointestinal: no complaints Musculoskeletal: back pain (moderate with left leg discomfort), other (unable to void last night, nunez in place, >1000cc noted after cath placed) Exam/Review of Systems Exam Vitals Vital Signs Date Temp Pulse Resp B/P (MAP) Pulse Ox O2 O2 Flow FiO2 Time Delivery Rate 07/29/18 98.5 87 18 133/72 94 00:17 (92) 07/28/18 Nasal 2.0 19:46 Cannula Intake and Output 07/28/18 07/28/18 07/29/18 1515:00 23:00 07:00 IntakeIntake Total 1500 ml 410 ml 1350 ml OutputOutput Total 30 ml 2500 ml BalanceBalance 1500 ml 380 ml -1150 ml Neck: No jvd Respiratory: clear to auscultation Cardiovascular: regular rate and rhythm Gastrointestinal: soft Extremities: No edema, No tenderness Results Result Diagram: 07/29/18 0448 07/29/18 0448 Results 24hrs Laboratory Tests Test 07/28/18 10:50 07/29/18 04:48 07/29/18 07:19 White Blood Count 10.1 # 13.8 #H Red Blood Count 4.45 L 4.07 L Hemoglobin 13.7 L 12.6 L Hematocrit 41.0 L 37.9 L Mean Corpuscular Volume 92.1 93.1 Mean Corpuscular Hemoglobin 30.8 31.0 Mean Corpuscular 33.4 33.2 Hemoglobin Concent Red Cell Distribution Width 13.5 13.2 Platelet Count 235 # 238 Mean Platelet Volume 9.9 10.2 Immature Granulocytes % 0.500 H 0.400 Neutrophils % 64.3 81.9 H Lymphocytes % 26.1 11.4 L Monocytes % 7.1 6.2 Eosinophils % 1.4 0.0 Basophils % 0.6 0.1 Nucleated Red Blood Cells % 0.0 0.0 Immature Granulocytes # 0.050 H 0.060 H Neutrophils # 6.5 11.3 H Lymphocytes # 2.6 1.6 Monocytes # 0.7 0.9 Eosinophils # 0.1 0.0 Basophils # 0.1 0.0 Nucleated Red Blood Cells # 0.0 0.0 Sodium Level 140 Potassium Level 4.2 Chloride Level 109 Carbon Dioxide Level 23 Anion Gap 8 Blood Urea Nitrogen 11 Creatinine 0.54 L Est Glomerular Filtrat > 60 Rate mL/min Glucose Level 136 Calcium Level 9.3 Magnesium Level 2.0 Lab Scanned Report REFERENCE LAB Medications Medication Current Medications Potassium Chloride/Dextrose/ Sod Cl 1,000 ml @ 100 mls/hr Q10H IV Last administered on 07/29/18at 05:35; Admin Dose 100 MLS/HR; Start 07/28/18 at 12:17 Acetaminophen/ Hydrocodone Bitart ([place] (5/325)) 1 tab Q4H PRN PO .PAIN 1-5 Last administered on 07/28/18at 18:50; Admin Dose 1 TAB; Start 07/28/18 at 12:30 Acetaminophen/ Hydrocodone Bitart ([place] (5/325)) 2 tab Q4H PRN PO .PAIN 6-10; Start 07/28/18 at 12:30 Hydromorphone HCl (Dilaudid) 0.2 mg Q1H PRN IV .BREAKTHROUGH PAIN; Start 07/28/18 at 12:30 Ondansetron HCl (Zofran Inj) 4 mg Q6H PRN IV NAUSEA/VOMITING; Start 07/28/18 at 12:30 Bisacodyl (Dulcolax Supp) 10 mg DAILY PRN MS .CONSTIPATION; Start 07/28/18 at 12:30 Docusate Sodium (Colace) 100 mg BID PO Last administered on 07/28/18at 20:34; Admin Dose 100 MG; Start 07/28/18 at 21:00 Al Hydrox/Mg Hydrox/Simethicone (Mag-Al Plus) 15 ml Q6H PRN PO .CONSTIPATION/DYSPEPSIA Last administered on 07/29/18at 05:35; Admin Dose 15 ML; Start 07/28/18 at 12:30 Acetaminophen (Tylenol Tab) 650 mg Q4H PRN PO PANCHAL OR TEMP GREATER THAN 101.3F; Start 07/28/18 at 12:30 Cyclobenzaprine HCl (Flexeril) 5 mg TID PRN PO .MUSCLE SPASM; Start 07/28/18 at 12:30 Phenol (Cepastat Lozenge) 1 lozenge PRN PRN MT .SORE THROAT; Start 07/28/18 at 12:30 Diphenhydramine HCl (Benadryl) 25 mg Q6H PRN PO .ITCHING; Start 07/28/18 at 12:30 Diphenhydramine HCl (Benadryl) 25 mg Q6H PRN IV .ITCHING; Start 07/28/18 at 12:30 Naloxone HCl (Narcan) 0.2 mg Q2M PRN IV .RR 8 BREATHS/MIN OR LESS; Start 07/28/18 at 12:30 Nicotine (Nicoderm 21 Mg/ 24hr) 1 patch DAILY TRANSDERM Last administered on 07/28/18at 20:23; Admin Dose 1 PATCH; Start 07/28/18 at 19:00 GENESIS QUESADA MD Jul 29, 2018 08:31
[2018-07-29] MEDS: NICOTINE (21 MG/24 HR) PATCH TRANSDERM SCH (08:54)
[2018-07-29 09:00] VITALS: BP 124/80; PULSE 89; RESP 18
[2018-07-29] MEDS: DOCUSATE SODIUM 100 MG CAP PO SCH (09:00)
[2018-07-29] MEDS: HYDROCODONE/APAP (5/325) TAB PO PRN ×3 (09:01→16:48)
--- NOTE | 2018-07-29 12:47 | PN ---
Date/Time of Note Date/Time of Note DATE: 07/29/18 TIME: 12:46 Assessment/Plan Lines/Catheters IV Catheter Type (from Nrs): Peripheral IV Nunez in Place (from Nrs): Yes Assessment/Plan Assessment/Plan POD #1 s/p revision left L4-5 microdiscectomy not yet cleared for D/C by PT nunez removed - to see if patient can void please call me if patient wishes to go home later today for D/C orders Subjective 24 Hr Interval Summary c/o LBP Exam/Review of Systems Vital Signs Vitals Vital Signs Date Temp Pulse Resp B/P (MAP) Pulse Ox O2 O2 Flow FiO2 Time Delivery Rate 07/29/18 98.0 89 18 124/80 94 09:00 (95) 07/28/18 Nasal 2.0 19:46 Cannula Intake and Output 07/28/18 07/28/18 07/29/18 1515:00 23:00 07:00 IntakeIntake Total 1500 ml 410 ml 1350 ml OutputOutput Total 30 ml 2500 ml BalanceBalance 1500 ml 380 ml -1150 ml Exam Free Text/Dictation exam unchanged dressing intact Results Result Diagram: 07/29/18 0448 07/29/18 0448 JESÚS BREWSTER MD Jul 29, 2018 12:47
[2018-07-29 14:13] VITALS: BP 114/68; PULSE 86; RESP 18
[2018-07-29] MEDS ORDERED: TAMSULOSIN (SR) 0.4 MG CAP PO SCH (21:00)
--- NOTE | 2018-07-30 12:15 | DS ---
Date/Time of Note Date/Time of Note DATE: 07/30/18 TIME: 12:14 Discharge Summary Admission/Discharge Info Admit Date/Time Jul 28, 2018 at 09:39 Discharge Date/Time Jul 29, 2018 at 17:35 Discharge Diagnosis recurrent HNP Patient Condition: Good Procedures revision microdiscectomy Hospital Course patient was admitted to the [facility] after undergoing a revision microdiscectomy. A nunez was placed on pod 0 which was removed the next AM. by post op day 1 the patient was deemed stable for d.c. with f/u arranged with the undersigned. Home Meds No Active Prescriptions or Reported Meds Primary Care Provider Fernando Braxton MD Pending Labs Laboratory Tests Test 07/29/18 12:45 Urine Color STRAW (YELLOW) Urine Clarity CLEAR (CLEAR) Urine pH 7.0 (5.0-9.0) Urine Specific [place] 1.006 (1.003-1.030) Urine Ketones NEGATIVE mg/dL (NEGATIVE) Urine Nitrite NEGATIVE mg/dL (NEGATIVE) Urine Bilirubin NEGATIVE mg/dL (NEGATIVE) Urine Urobilinogen NEGATIVE mg/dL (NEGATIVE) Urine Leukocyte Esterase NEGATIVE [place]/ul Urine Microscopic RBC 1 /HPF (0-5) Urine Microscopic WBC 1 /HPF (0-5) Urine Hemoglobin 2+ mg/dL (NEGATIVE) Urine Glucose NEGATIVE mg/dL (NEGATIVE) Urine Total Protein NEGATIVE mg/dl (NEGATIVE) Microbiology Date/Time Source Procedure Growth Status 07/29/18 12:45 Nunez Catheter Urine Culture - Preliminary NO GROWTH Resulted AFTER 24 HOURS FERNANDO BRAXTON MD Jul 30, 2018 12:15
== END 2018-07-29 17:35 | disposition home or self-care (01) | DRG 520 ==
LOC: REC 09:39 → EDSTATUS 12:00 → MS1 15:53
PROVIDERS: ADMIT Specialist; ATTEND Specialist
PROC: 4A11X4G Monitoring of Peripheral Nervous Electrical Activity, Intraoperative, External Approach (ICD-10-PCS; 2018-07-28)
PROC: 0SB20ZZ Excision of Lumbar Vertebral Disc, Open Approach (ICD-10-PCS; principal; 2018-07-28 12:00)
DX: M51.16 Intervertebral disc disorders with radiculopathy, lumbar region (principal); E66.9 Obesity, unspecified; I10 Essential (primary) hypertension; F17.200 Nicotine dependence, unspecified, uncomplicated; I45.10 Unspecified right bundle-branch block; R33.9 Retention of urine, unspecified; Z68.37 Body mass index [BMI] 37.0-37.9, adult
CPT/HCPCS: 72020; 80048; 81001; 83735; 85025; 86999; 87086; 88304; 97116; 97161; 97530; J0690; J1100; J1170; J1644; J2175; J2250; J2405; J2710; J2765; J3010; J3480